=== PATIENT | male | born 1955 ===

== ENCOUNTER 2016-08-12 18:34 | Emergency (ER) | payer OTHER ==
[2016-08-12 18:47] VITALS: TEMP 97.7
--- NOTE | 2016-08-12 20:03 | EDPHY ---
HPI/HX/ROS/PE/MDM Narrative: CHIEF COMPLAINT: Left shoulder pain. HISTORY OF PRESENT ILLNESS: The patient is a 60-year-old male who presents with sharp left arm pain that began this morning upon waking. The pain has been constant and is worse with movement. It is severe in nature. He localizes it to the shoulder and it does not radiate. He has taking Advil to moderate effect. He denies numbness, weakness, or paresthesias. He drove for 8 hours yesterday. No fever, chills, chest pain, shortness of breath, palpitations, vomiting, diarrhea, urinary complaints, headache, lightheadedness. He did have a rotator cuff injury in this shoulder a few years ago. REVIEW OF SYSTEMS: Aside from elements discussed in the HPI, a comprehensive 10-point review of systems was reviewed and is negative. PAST MEDICAL HISTORY: Hypothyroidism, hypercholesterolemia. SOCIAL HISTORY: Nonsmoker, no illicit drug use. VITAL SIGNS: Reviewed by me GENERAL: Well-developed, well-nourished, resting comfortably in no respiratory distress. HEENT: Atraumatic. Eyes: No icterus, no injection. Mouth: moist mucous membranes. No erythema or lesions. Neck: supple with no adenopathy. LUNGS: Clear to auscultation bilaterally, no wheezes, rhonchi or rales. CARDIAC: Regular rate and rhythm, no rubs, murmurs or gallops. ABDOMEN: Soft, nontender, nondistended, bowel sounds normal. BACK: No CVA tenderness. EXTREMITIES: No trauma. No edema. Left shoulder: Well localized tendernss to palpation along lateral deltoid. Inability to abduct and pain with abduction. Normal internal and external rotation. Normal flextion and extenstion. Pain with ROM. NEURO: Alert and oriented, grossly nonfocal. SKIN: Warm and dry, no rash. PSYCHIATRIC: Normal mentation, no agitation. Portions of this note were transcribed by a registered medical transcriptionist. I personally performed a history, physical exam, medical decision making, and confirmed accuracy of information the transcribed note. ED Course: 60-year-old male presents with sharp left shoulder pain since he awoke this morning. The pain is severe and worse with movement. He has no numbness or weakness. He is able to move the fingers of his left hand. His shoulder is not warm to the touch and he has not been febrile. He denies fever, shortness of breath, chest pain, or other complaints. He denies other symptoms at this time. Left shoulder x-ray ordered. I independently reviewed the patient's images on the PACS system. My interpretation: calcifications seen adjacent to joint consistent with calcific tendonitis. See Imaging section for radiology reports. The differential diagnosis includes but is not limited to: shoulder sprain, shoulder strain, rotator cuff injury, arthritis, joint infection. Findings discussed with patient. Recommend nsaids, rest, follow up with ortho for possible injection. - Data Points Medications Given: Discontinued Medications Hydrocodone Bitart/Acetaminophen ([place] 5/325) 1 tab PO EDNOW ONE Stop: 08/12/16 20:20 Last Admin: 08/12/16 20:28 Dose: 1 tab Hydrocodone Bitart/Acetaminophen ([place] 5/325mg Prepack#6) 1 btl TAKEHOME EDNOW ONE Stop: 08/12/16 21:26 Last Admin: 08/12/16 21:48 Dose: 1 btl General Time Seen by Provider: 08/12/16 19:43 Initial Vital Signs: Initial Vital Signs Temperature (C) 36.5 C 08/12/16 18:44 Heart Rate 71 08/12/16 18:44 Respiratory Rate 18 08/12/16 18:44 Blood Pressure 130/78 H 08/12/16 18:44 O2 Sat (%) 95 08/12/16 18:44 O2 Delivery Mode Room Air Allergies/Adverse Reactions: No Known Allergies Allergy (Unverified 08/12/16 18:47) Home Medications: Medication Instructions Recorded Cholesterol Medication. 08/12/16 Hydrocodone/APAP 5/325 [[place] 1 tab PO Q6H PRN #10 tab 08/12/16 5/325 (RX)] Levothyroxine 08/12/16 Departure - Departure Disposition: Home, Routine, Self-Care Clinical Impression: Left shoulder tendonitis Condition: Good Instructions: Tendinitis (ED) Additional Instructions: Mainstay of therapy is rest, ice, immobilization, elevation, and nonsteroidal anti-inflammatories for pain and to decrease swelling. Apply ice for 20-30 minutes every 2-3 hours for the next 48 hours. I recommend Ibuprofen (Motrin,Advil) or Naproxen Sodium (Aleve) for pain and anti-inflammatory effects. You may take either one, but do not take both. Your dose is: Ibuprofen 600mg every 6-8 hours with food. OR Naproxen Sodium (Aleve) 220mg every [address] Smith, orthopedics, tomorrow to set up a follow up appointment. Return to the emergency department if you experience any serious worsening of condition. Referrals: Beck Howard MD [Primary Care Provider] - As per Instructions Han Smith MD [Medical Doctor] - As per Instructions Prescriptions: Hydrocodone/APAP 5/325 [[place] 5/325 (RX)] 1 tab PO Q6H PRN #10 tab PRN Reason: Pain Report Scribed for: Linda Caraballo Report Scribed by: Сергей Kim Date of Report: 08/12/16 Time of Report: 19:44
[2016-08-12] MEDS ORDERED: HYDROCODONE/APAP 5/325 TAB PO ONE (20:19)
[2016-08-12] MEDS ORDERED: HYDROCOD/APAP 5/325 PREPACK#6 BTL TAKEHOME ONE (21:25)
[2016-08-12 21:48] VITALS: BP 128/82; PULSE 70; RESP 16; O2SAT 97
== END 2016-08-12 21:45 | disposition home or self-care (01) ==
DX: M75.82 Other shoulder lesions, left shoulder (principal)

== ENCOUNTER 2017-04-16 04:03 | Observation (INO) | payer OTHER ==
--- NOTE | 2017-04-16 04:15 | EDPHY ---
H & P Stated Complaint: Near syncope, fell from standing, R arm pain Time Seen by Provider: 04/16/17 04:10 HPI/ROS: Chief Complaint: Near syncope, right arm injury HPI: 61-year-old male woke this morning with a strange sensation in his left lower abdomen in the sensation he had to urinate. He got up and went to the bathroom. He only had a few drops of urine. He was walking back to his bed when he collapsed. Patient thinks he may have had a brief several 2nd loss of consciousness. He remembers feeling a crack when he fell. He believes his arm was behind him. He does not think he hit his head. Did not have any preceding chest pain. He did feel somewhat diaphoretic right before he fell and also after he fell. No shortness of breath. No previous history of the same. ROS: 10 point Review of Systems is negative except as noted in the HPI. PMH: Hypothyroidism, hyperlipidemia Social History: No smoking, occasional alcohol, no recreational drug use Family History: non-contributory Physical Exam: Gen: Awake, Alert, No Distress HEENT: Nose: no rhinorrhea Eyes: PERRLA, EOMI Mouth: Moist mucosa Neck: Supple, no JVD Chest: nontender, lungs clear to auscultation Heart: S1, S2 normal, no murmur Abd: Soft, non-tender, no guarding Back: no CVA tenderness, no midline tenderness Ext: Right mid shaft humerus is deformed, shoulder is in normal anatomic alignment with no bony deformities, 2+ radial ulnar pulses. Sensations intact in the radial, median and ulnar nerve distribution. Capillary refills less than 3 sec. Skin: no rash Neuro: CN II-XII intact, Sensation grossly intact, Strength 5/5 in bilateral upper and lower extremities - Personal History Current Tetanus/Diphtheria Vaccine: Unsure Current Tetanus Diphtheria and Acellular Pertussis (TDAP): Unsure - Medical/Surgical History Hx Asthma: No Hx Chronic Respiratory Disease: No Hx Diabetes: No Hx Cardiac Disease: No Hx Renal Disease: No Hx Cirrhosis: No Hx Alcoholism: No Hx HIV/AIDS: No Hx Splenectomy or Spleen Trauma: No Other PMH: Hypothyroidism, high cholesterol. - Social History Smoking Status: Never smoked Constitutional: Initial Vital Signs Temperature (C) 36.4 C 04/16/17 04:05 Heart Rate 75 04/16/17 04:05 Respiratory Rate 16 04/16/17 04:05 Blood Pressure 118/78 04/16/17 04:05 O2 Sat (%) 93 04/16/17 04:05 O2 Delivery Mode Room Air Allergies/Adverse Reactions: No Known Allergies Allergy (Unverified 08/12/16 18:47) Home Medications: Medication Instructions Recorded Cholesterol Medication. 08/12/16 Hydrocodone/APAP 5/325 [[place] 1 tab PO Q6H PRN #10 tab 08/12/16 5/325 (RX)] Levothyroxine 08/12/16 Medical Decision Making - Diagnostics EKG Interpretation: ECG time 4:18 a.m., sinus rhythm with a rate of 68. There is a first-degree AV block. There is borderline left axis deviation, no acute ST or T-wave changes. Imaging Results: Right mid shaft humerus fracture. Imaging: I viewed and interpreted images myself ED Course/Re-evaluation: 61-year-old male with a mid shaft humerus fracture status post syncopal fall. ECG shows a first-degree heart block. He has as midshaft fracture on his x- ray. Laboratory evaluations are negative. I have discussed with Dr. Lucía Morrow's PA. They will plan on evaluating for possible surgical repair today. Patient is to remain NPO. I have discussed with the hospitalist, Dr. Blum. She will admit to her service for further care. - Data Points Laboratory Results: Laboratory Results 04/16/17 04:00 04/16/17 04:00 04/16/17 04/16/17 04/16/17 04:57 04:00 04:00 WBC 8.19 10^3/uL 10^3/uL (3.80-9.50) RBC 5.47 10^6/uL 10^6/uL (4.40-6.38) Hgb 16.7 g/dL g/dL (13.7-17.5) Hct 46.5 % % (40.0-51.0) MCV 85.0 fL fL (81.5-99.8) MCH 30.5 pg pg (27.9-34.1) MCHC 35.9 g/dL g/dL (32.4-36.7) RDW 14.2 % % (11.5-15.2) Plt Count 202 10^3/uL 10^3/uL (150-400) MPV 11.2 fL fL (8.7-11.7) Neut % (Auto) 42.9 % % (39.3-74.2) Lymph % (Auto) 44.0 % % (15.0-45.0) [place] % (Auto) 9.3 % % (4.5-13.0) Eos % (Auto) 2.8 % % (0.6-7.6) Baso % (Auto) 0.5 % % (0.3-1.7) Nucleat RBC Rel Count 0.0 % % (0.0-0.2) Absolute Neuts (auto) 3.52 10^3/uL 10^3/uL (1.70-6.50) Absolute Lymphs (auto) 3.60 10^3/uL H 10^3/uL (1.00-3.00) Absolute Monos (auto) 0.76 10^3/uL 10^3/uL (0.30-0.80) Absolute Eos (auto) 0.23 10^3/uL 10^3/uL (0.03-0.40) Absolute Basos (auto) 0.04 10^3/uL 10^3/uL (0.02-0.10) Absolute Nucleated RBC 0.00 10^3/uL 10^3/uL (0-0.01) Immature Gran % 0.5 % % (0.0-1.1) Immature Gran # 0.04 10^3/uL 10^3/uL (0.00-0.10) Sodium 146 mEq/L H mEq/L (134-144) Potassium 4.2 mEq/L mEq/L (3.5-5.2) Chloride 109 mEq/L mEq/L (97-110) Carbon Dioxide 22 mEq/l mEq/l (22-31) Anion Gap 15 mEq/L mEq/L (8-16) BUN 13 mg/dL mg/dL (7-23) Creatinine 0.9 mg/dL mg/dL (0.7-1.3) Estimated GFR > 60 Glucose 115 mg/dL H mg/dL (70-100) Calcium 9.7 mg/dL mg/dL (8.5-10.4) Troponin I < 0.012 ng/mL ng/mL (0.000-0.034) Urine Color Pending Urine Appearance Pending Urine pH Pending Ur Specific [place] Pending Urine Protein Pending Urine Ketones Pending Urine Blood Pending Urine Nitrate Pending Urine Bilirubin Pending Urine Urobilinogen Pending Ur Leukocyte Esterase Pending Urine Glucose Pending Medications Given: Discontinued Medications Sodium Chloride (Ns) 1,000 mls @ 0 mls/hr IV ONCE ONE PRN Reason: Wide [place] Stop: 04/16/17 04:42 Last Admin: 04/16/17 04:44 Dose: 1,000 mls Departure - Departure Disposition: [facility] Inpatient Acute Clinical Impression: Humerus fracture, Syncope Condition: Fair Referrals: Patient,NotPresent [Unknown] - As per Instructions
[2017-04-16 04:18] LABS: % IMMATURE GRANULYOCYTES 0.5 % (0.0-1.1); ABSOLUTE IMMATURE GRANULOCYTES 0.04 10^3/uL (0.00-0.10); ADD DIFF? NO; ADD MORPH? NO; ADD SCAN? NO; ATYPICAL LYMPHOCYTE FLAG 20 (0-99); FRAGMENT RBC FLAG 0 (0-99); HEMATOCRIT 46.5 % (40.0-51.0); HEMOGLOBIN 16.7 g/dL (13.7-17.5); LEFT SHIFT FLG 0 (0-99); LIPEMIA HEMOLYSIS FLAG 90 (0-99); MEAN CELL HEMOGLOBIN 30.5 pg (27.9-34.1); MEAN CELL HEMOGLOBIN CONCENTR. 35.9 g/dL (32.4-36.7); MEAN PLATELET VOLUME 11.2 fL (8.7-11.7); PLATELET CLUMPS FLAG 0 (0-99); PLATELET COUNT 202 10^3/uL (150-400); RED BLOOD CELL COUNT 5.47 10^6/uL (4.40-6.38); RED CELL DISTRIBUTION WIDTH 14.2 % (11.5-15.2)
[2017-04-16 04:37] LABS: ANION GAP 15 mEq/L (8-16); CALCIUM 9.7 mg/dL (8.5-10.4); CARBON DIOXIDE 22 mEq/l (22-31); CHLORIDE 109 mEq/L (97-110); CREATININE 0.9 mg/dL (0.7-1.3); GLOMERULAR FILTRATION RATE > 60; GLUCOSE 115 mg/dL (70-100); POTASSIUM 4.2 mEq/L (3.5-5.2); SODIUM 146 mEq/L (134-144)
[2017-04-16] MEDS ORDERED: NS 1,000 ML IV ONE (04:41)
[2017-04-16 04:49] LABS: TROPONIN I < 0.012 ng/mL (0.000-0.034)
--- NOTE | 2017-04-16 05:05 | CPEKG ---
Heart Rate: 68 RR Interval: 882 P-R Interval: 228 QRSD Interval: 96 QT Interval: 420 QTC Interval: 447 P [place]: 32 QRS [place]: -18 T Wave [place]: 22 EKG Severity - ABNORMAL ECG - EKG Impression: SINUS RHYTHM EKG Impression: FIRST DEGREE AV BLOCK EKG Impression: BORDERLINE LEFT AXIS DEVIATION Electronically Signed By: Andrae Harvey 16-Apr-2017 23:35:30
[2017-04-16 05:08] LABS: COLOR YELLOW; LEUKOCYTE ESTERASE,URINE NEGATIVE (NEGATIVE); NITRITE,URINE NEGATIVE (NEGATIVE)
[2017-04-16] MEDS ORDERED: LIDOCAINE 2% JELLY 20 ML (UROJECT) UR ONE (05:10)
[2017-04-16 05:13] LABS: MUCUS TRACE /lpf (NONE-1+); RBC,URINE 50-182 /hpf (0-3)
[2017-04-16] MEDS ORDERED: ONDANSETRON 4 MG/2 ML VIAL IVP ONE ×2 (05:15→06:36)
[2017-04-16] MEDS ORDERED: ONDANSETRON 4 MG/2 ML VIAL ONE (05:19)
[2017-04-16] MEDS ORDERED: ONDANSETRON DISINTEGRATING 4 MG TAB PO PRN (05:49)
[2017-04-16] MEDS ORDERED: ONDANSETRON 4 MG/2 ML VIAL IVP PRN (05:49)
[2017-04-16] MEDS ORDERED: LR 1,000 ML IV SCH (06:00)
[2017-04-16] MEDS ORDERED: PROMETHAZINE HCL 25 MG/ML INJ IVP ONE (08:13)
[2017-04-16] MEDS ORDERED: PROMETHAZINE HCL 25 MG/ML INJ IVP PRN (08:14)
--- NOTE | 2017-04-16 08:30 | PDGENHP ---
History and Physical - Chief Complaint syncope, right arm pain - History of Present Illness Source - patient provides history and appears reliable. at bedside. HPI - Pleasant 61 yo M with pmhx significant for hypothyroidism and HLD who presents to ED today following a syncopal episode at home. Patient awoke early this AM to void. He was able to ambulate to the bathroom without difficulty or symptoms. He notes he had some hesitancy with stream and was unable to void except for a few drops. He began to feel LLQ abdominal pain and was concerned he may have developed a kidney stone. Patient denies any hematuria or dysuria. no previous history of nephrolithiasis previously. patient without any nausea/ vomiting until he received pain medications in ED. After patient was only able to void a little amount he was walking back to the bed when he blacked out. He recalls falling and hearing a pop. reports patient may have been out for 1 -2 minutes. When he awoke patient noted pain in his right arm and some mild shortness of breath that quickly resolved. he denies any chest pain/palpitations /lightheadedness. Currently pain is well controlled in both arm and abdomen. History Information - Allergies/Home Medication List Allergies/Adverse Reactions: No Known Allergies Allergy (Unverified 08/12/16 18:47) Home Medications: Atorvastatin Calcium [Lipitor 10 mg (*)] 10 mg PO HS 08/12/16 [Last Taken ] Levothyroxine [Synthroid 112 mcg (*)] 112 mcg PO DAILY06 08/12/16 [Last Taken ] Fluticasone Nasal [Flonase Nasal [place] (RX)] 1 sprays NASAL DAILY PRN 04/16/17 [ Last Taken Unknown] Ibuprofen [Motrin (*)] 200 mg PO DAILY PRN 04/16/17 [Last Taken Unknown] I have personally reviewed and updated: family history, medical history, social history, surgical history - Past Medical History Additional medical history: hypothyroidism. HLD - Surgical History Reports: no pertinent surgical hx Additional surgical history: denies - Family History Additional family history: mother - HTN. no fhx kidney stones or renal disease - Social History Smoking Status: Never smoked Alcohol Use: None Drug Use: None Additional social history: patient and lives with . 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 COR - FULL. MDPOA. living will in place. Review of Systems Review of Systems: ROS: 10pt was reviewed & negative except for what was stated in HPI & below Constitutional: Denies: chills, fever, weakness EENMT: Reports: no symptoms Cardiac: Reports: syncope. Denies: chest pain, edema, lightheadedness, palpitations Respiratory: Reports: shortness of breath (dyspnea upon wakening from syncopal episode), other (rare episodes of apnea) Gastrointestinal: Reports: nausea (s/p pain medication). Denies: vomitting, diarrhea Genitourinary: Reports: other (see HPI. retention today.). Denies: burning, dysuria, hematuria Muscolosketal: Reports: no symptoms Skin: Reports: no symptoms Neurological: Reports: no symptoms. Denies: headache, tingling Physical Exam Physical Exam: Selected Entries 04/16/17 04:05 Blood Pressure Automatic Method Heart Rate 75 Respiratory 16 Rate O2 Sat (%) 93 Temperature (C) 36.4 C Blood Pressure 118/78 Mean Arterial 91 Pressure (MAP) O2 Delivery Room Air Mode Temperature Oral Source Temp Pulse Resp BP Pulse Ox 36.6 C 84 18 133/82 H 95 04/16/17 07:52 04/16/17 07:52 04/16/17 07:52 04/16/17 07:52 04/16/17 07:52 O2 (L/minute) 2 Constitutional: no apparent distress, not in pain Eyes: PERRL, anicteric sclera, EOMI Ears, Nose, Mouth, Throat: moist mucous membranes, other (no nasal discharge), No poor dentition Cardiovascular: no murmur, rub, or gallop, pulses symmetric bilaterally, bradycardia, No systolic murmur, No irregularly irregular, No edema Peripheral Pulses: 1+: dorsalis-pedis (R), dorsalis-pedis (L) Respiratory: no respiratory distress, no rales or rhonchi, clear to auscultation , No reduced air movement Gastrointestinal: soft, non-tender abdomen, other (obese abdomen. hypoactive BS. soft. NTTP.), No ascites, No guarding, No rebound Genitourinary: no bladder tenderness, No amos in urethra Skin: warm, normal color, No rash Musculoskeletal: pain with ROM (right arm in sling. pain with movement.), No generalized weakness Neurologic: AAOx3, sensation intact bilaterally, other (grossly nonfocal. sensation intact to bilateral hands.), No weakness, No facial droop Psychiatric: interacting appropriately, not anxious, not encephalopathic, thought process linear, No poor insight, No poor judgement, No poor memory Lab Data & Imaging Review 04/16/17 04:00 04/16/17 04:00 WBC 8.19 10^3/uL (3.80-9.50) 04/16/17 04:00 RBC 5.47 10^6/uL (4.40-6.38) 04/16/17 04:00 Hgb 16.7 g/dL (13.7-17.5) 04/16/17 04:00 Hct 46.5 % (40.0-51.0) 04/16/17 04:00 MCV 85.0 fL (81.5-99.8) 04/16/17 04:00 MCH 30.5 pg (27.9-34.1) 04/16/17 04:00 MCHC 35.9 g/dL (32.4-36.7) 04/16/17 04:00 RDW 14.2 % (11.5-15.2) 04/16/17 04:00 Plt Count 202 10^3/uL (150-400) 04/16/17 04:00 MPV 11.2 fL (8.7-11.7) 04/16/17 04:00 Neut % (Auto) 42.9 % (39.3-74.2) 04/16/17 04:00 Lymph % (Auto) 44.0 % (15.0-45.0) 04/16/17 04:00 [place] % (Auto) 9.3 % (4.5-13.0) 04/16/17 04:00 Eos % (Auto) 2.8 % (0.6-7.6) 04/16/17 04:00 Baso % (Auto) 0.5 % (0.3-1.7) 04/16/17 04:00 Nucleat RBC Rel Count 0.0 % (0.0-0.2) 04/16/17 04:00 Absolute Neuts (auto) 3.52 10^3/uL (1.70-6.50) 04/16/17 04:00 Absolute Lymphs (auto) 3.60 10^3/uL (1.00-3.00) H 04/16/17 04:00 Absolute Monos (auto) 0.76 10^3/uL (0.30-0.80) 04/16/17 04:00 Absolute Eos (auto) 0.23 10^3/uL (0.03-0.40) 04/16/17 04:00 Absolute Basos (auto) 0.04 10^3/uL (0.02-0.10) 04/16/17 04:00 Absolute Nucleated RBC 0.00 10^3/uL (0-0.01) 04/16/17 04:00 Immature Gran % 0.5 % (0.0-1.1) 04/16/17 04:00 Immature Gran # 0.04 10^3/uL (0.00-0.10) 04/16/17 04:00 Sodium 146 mEq/L (134-144) H 04/16/17 04:00 Potassium 4.2 mEq/L (3.5-5.2) 04/16/17 04:00 Chloride 109 mEq/L (97-110) 04/16/17 04:00 Carbon Dioxide 22 mEq/l (22-31) 04/16/17 04:00 Anion Gap 15 mEq/L (8-16) 04/16/17 04:00 BUN 13 mg/dL (7-23) 04/16/17 04:00 Creatinine 0.9 mg/dL (0.7-1.3) 04/16/17 04:00 Estimated GFR > 60 04/16/17 04:00 Glucose 115 mg/dL (70-100) H 04/16/17 04:00 Calcium 9.7 mg/dL (8.5-10.4) 04/16/17 04:00 Troponin I < 0.012 ng/mL (0.000-0.034) 04/16/17 04:00 TSH 1.320 uIU/mL (0.465-4.680) 04/16/17 04:00 Urine Color YELLOW 04/16/17 04:57 Urine Appearance CLEAR 04/16/17 04:57 Urine pH 6.0 (5.0-7.5) 04/16/17 04:57 Ur Specific [place] 1.019 (1.002-1.030) 04/16/17 04:57 Urine Protein NEGATIVE (NEGATIVE) 04/16/17 04:57 Urine Ketones NEGATIVE (NEGATIVE) 04/16/17 04:57 Urine Blood 3+ (NEGATIVE) H 04/16/17 04:57 Urine Nitrate NEGATIVE (NEGATIVE) 04/16/17 04:57 Urine Bilirubin NEGATIVE (NEGATIVE) 04/16/17 04:57 Urine Urobilinogen NEGATIVE EU (0.2-1.0) 04/16/17 04:57 Ur Leukocyte Esterase NEGATIVE (NEGATIVE) 04/16/17 04:57 Urine RBC 50-182 /hpf (0-3) H 04/16/17 04:57 Urine WBC Not Reported 04/16/17 04:57 Ur Epithelial Cells TRACE /lpf (NONE-1+) 04/16/17 04:57 Urine Mucus TRACE /lpf (NONE-1+) 04/16/17 04:57 Urine Glucose NEGATIVE (NEGATIVE) 04/16/17 04:57 Imaging Review: CT abdomen/pelvis wo 2mm stone L UVJ bulging into bladder. mild left hydro. gallstones. EKG additional interpertation: NSR 60s. LAD. 1st degree AV block. QTc 447. Assessment & Plan Assessment: 1. Humerus fracture (Acute) - right arm. ortho consulted from the ED and plan for possible repair today or thereafter. 2. Syncope (Acute) - suspect vasovagal response after patient was unable to void vs orthostasis vs less likely cardiac or neurologic event. Patient EKG with 1st degree AV block. will plan to monitor on telemetry. orthostatic BPs. s/ p 1 L NS in ED. Patient reports active lifestyle swimming at least 7 or more miles weekly and no previous history of chest pain or typical symptoms of angina. 3. nephrolithiasis with obstruction/hydronephrosis at L UVJ - anticipate stone should mobilize to bladder completely. IVF. supportive care. 4. urinary retention - no previous history of BPH. patient with kidney stone as noted above. patient required straight cath in ED and now s/p narcotics. will continue to monitor bladder scan/PVR. Patient may require amos if continues to have large volume retention. 5. hypothyroidism - resume l-thyroxine when diet advanced. 6. HLD - resume statin when diet advanced. FEN - IVF. electrolyte replacement prn. NPO. PPX - SCDs. holding anticoagulation pending ortho recs. COR - FULL MDPOA. Dispo - Admit to observation on medical floor pending orthopedic recs.
[2017-04-16] MEDS ORDERED: IBUPROFEN 200 MG TAB PO PRN (09:14)
[2017-04-16] MEDS ORDERED: FLUTICASONE NASAL 120 SPRAYS/16 GM MDI EACHNARE PRN (09:14)
[2017-04-16] MEDS ORDERED: LORazepam 2 MG/ML INJ IVP PRN (10:24)
--- NOTE | 2017-04-16 12:36 | GCON ---
[f rep st] CONSULTATION CHIEF COMPLAINT: Right arm pain. HISTORY OF PRESENT ILLNESS: Patient is a 61-year-old male who woke up in the middle of the night and went to the bathroom, became dizzy and fell landing on his right arm. Patient does state that he did feel and hear a crack in his right upper extremity. He also notes that there was a brief loss of consciousness. He was brought to the ER, where x-rays were taken and show a right midshaft humerus fracture. The patient was placed in a coaptation splint and a sling and made nonweightbearing on the right upper extremity. He denies any other orthopedic complaints. PAST MEDICAL HISTORY: Hypothyroidism and hyperlipidemia. MEDICATIONS: Atorvastatin, calcium, levothyroxine, fluticasone, and ibuprofen as needed. ALLERGIES: No known drug allergies. PAST SURGICAL HISTORY: No surgical history noted. FAMILY HISTORY: Mother has hypertension. Otherwise unremarkable. REVIEW OF SYSTEMS: A 10-point review of systems was reviewed and negative for any other complaints, concerns or history, except what was noted in the HPI. PHYSICAL EXAM: GENERAL: Ple[place], NAD. HEENT: NC/AT, EOMI, PERRLA. Ears and nares patent without discharge. Oropharynx is clear. Neck is nontender to palpation, full range of motion. MUSCULOSKELETAL: The right upper extremity: The coaptation splint is in place and stabilizing a midshaft humerus fracture. It is well fitted and comfortable. The patient's arm is in a sling. The skin is without erythema. Normal sensation to light touch in the right upper extremity. Distal pulse present in the right upper extremity. FROM of hand/ wrist. No pain with passive stretch. DNVI BUEs. SKIN: Warm, dry, and intact. NEUROLOGIC: Nonfocal. No deficits noted. C5-T1 and L2-S1. PSYCHIATRIC: Alert and orient x3. Appropriate mood and affect. Secondary survey negative. RADIOGRAPH: X-rays were reviewed of the right humerus and show a non-displaced and well-aligned, relatively transverse mid shaft humerus fracture. IMPRESSION: Closed, right midshaft humerus fracture. PLAN: The patient was seen and examined by both myself and Dr Castrejon independently, and it was discussed and reviewed with Dr. Castrejon and the plan is for the patient to remain in the coaptation splint and sling. He should be nonweightbearing on the right upper extremity. He needs to avoid any anti- inflammatories. He can use pain medicine as needed. At this time, the patient will not need surgery and we will continue with conservative treatment. All questions were answered to the patient's satisfaction. We will have him follow up with Dr. Castrejon next Friday or Friday, April 21 or , in the office for repeat x-rays and to assess fracture stability/treatment. As long as the fracture remains stable, we will continue with non-op treatment and transition to a fracture brace. Otherwise, it was discussed with the patient that if his fracture displaces, we would need to bring him to the OR at that point for ORIF. All questions answered, he illustrates understanding of the plan and he is happy with the care received. Please call with any questions. /[id number] [id number]
[2017-04-16] MEDS ORDERED: HYDROmorphONE/DILAUDID 2 MG TAB PO PRN (14:11)
[2017-04-16] MEDS ORDERED: BISACODYL 10 MG SUPP PR PRN (14:13)
[2017-04-16] MEDS ORDERED: POLYETHYLENE GLYCOL 3350 17 GM PKT PO PRN (14:13)
[2017-04-16] MEDS ORDERED: LACTULOSE 20 GM/30 ML UDCUP PO PRN (14:13)
[2017-04-16] MEDS ORDERED: MAGNESIUM HYDROXIDE 30 ML UDCUP PO PRN (14:13)
[2017-04-16] MEDS: ACETAMINOPHEN 325 MG TAB PO PRN ×2 (14:31→22:20)
--- NOTE | 2017-04-16 15:52 | ECHO ---
[email or web address] [address] [address] Main: [phone] Fax: Transthoracic Echocardiogram Name: VALENTINO LOZADA MR#: [id number] Study Date: 04/16/2017 Study Time: 02:23 PM Date of : 1955 Age: 61 year(s) Height: 175.3 cm (69 in.) Weight: 81.65 kg (180 lb.) BSA: 1.98 m2 Gender: Male Examination: Echo Indication: Syncope with Left Humerus fracture Image Quality: Contrast: Requested by: Lance Solares BP: 118 mmHg/73 mmHg Heart Rate: Rhythm: Tachycardia Indication: Syncope with Left Humerus fracture Procedure Staff Operator Assistant I Cementing: Jeffery Nielsen Reading Physician: Lance Crockett Requesting Provider: Conclusions: Normal size left ventricle. No LV hypertrophy. Global hypercontractility of the left ventricle. EF is 74 %. The mitral valve is normal in appearance and function. Mild aortic valve regurgitation is present. Measurements: Chambers Valvular Assessment AV/MV Valvular Assessment TV/PV Normal Normal Normal Name Value Range Name Value Range Name Value Range Ao Tasia (MM): 4.1 cm (2.2 cm-3.7 AV Vmax: 1.59 m/s (1 m/s-1.7 PV Vmax: 1.28 m/s (0.6 m/s-0.9 cm) m/s) m/s) IVSd (2D): 1.0 cm (0.6 cm-1.1 AV maxP mmHg ( - ) PV PGmax: 7 mmHg ( - ) cm) LVOT Vmax: 1.25 m/s (0.7 m/s-1.1 LVDd (2D): 4.7 cm (4.2 cm-5.9 m/s) cm) MV E Vmax: 0.84 m/s ( - ) LVDs (2D): 2.7 cm (2.1 cm-4 MV A Vmax: 0.69 m/s ( - ) cm) MV E/A: 1.22 ( - ) LVPWd (2D): 1.1 cm (0.6 cm-1 cm) LVEF (2D): 74 (>=54 %) Continued Measurements: Chambers Valvular Assessment AV/MV Name Value Name Value LADs Lon.0 cm MV E' Septal: 0.07 m/s LA Area: 17.0 cm2 MV E/E' Septal: 12.20 LA Volume: 50 ml MV E/E' Lateral: 9.60 Patient: VALENTINO LOZADA Study Date: 04/16/2017 Page 1 of 2 02:23 PM LA Volume Index: 25.3 ml/m2 Findings: Left Ventricle: Normal size left ventricle. No LV hypertrophy. Global hypercontractility of the left ventricle. EF is 74 %. No regional wall motion abnormality. Diastolic dysfunction is present. . Right Ventricle: Normal size right ventricle. Left Atrium: The left atrium is normal in size. Right Atrium: The right atrium is normal in size. Mitral Valve: The mitral valve is normal in appearance and function. There is no mitral valve regurgitation. Aortic Valve: The aortic valve is tri-leaflet. The aortic valve is normal in appearance and function. Mild aortic valve regurgitation is present. Tricuspid Valve: The tricuspid valve is normal in appearance and function. Pulmonic Valve: The pulmonic valve is normal in appearance and function. Aorta: The aorta is normal. Pericardium: Trivial pericardial effusion. No echocardiographic evidence of hemodynamic compromise. There is pericardial fat. (No Signature Object) Patient: VALENTINO LOZADA Study Date: 04/16/2017 Page 2 of 2 02:23 PM [id number]
[2017-04-16] MEDS: TAMSULOSIN HCL 0.4 MG CAP PO SCH (16:11)
[2017-04-16] MEDS: LEVOTHYROXINE 112 MCG TAB PO SCH (17:48)
--- NOTE | 2017-04-16 17:58 | HOSPPROG ---
Hospitalist Progress Note Assessment/Plan: Prolonged service in addition to the time originally spent by Dr. Anamika Blum for history and physical, direct patient care, at bedside with patient and from 11:40 a.m. until 12:15 p.m., 35 min, addressing the following: -the patient presented with acute right humerus fracture in the setting of syncopal event, most likely vasovagal in the setting of pain as well as urinary outflow obstruction -physical exam reveals regular heart rhythm with no murmurs rubs or gallops, no lower extremity edema, pain level 0/10 -patient has been seen in consultation by Orthopedics, they recommended a coaptation splint with sling, nonweightbearing right upper extremity, no NSAIDs , follow-up next Friday, Dr. Samuel Castrejon to follow up with patient his today -patient has yet to urinate, increase IV fluid rate, bladder scan if no urine output -underlying cause of pain was nephrolithiasis, recommend urine straining, increased IV fluids, Flomax, abdominal CT demonstrating left-sided hydronephrosis with 2 mm calcified stone in the distal left UVJ, will most likely pass without intervention -placed on bowel regimen, incentive spirometer -to rule out cardiac issue, get echocardiogram, monitor on telemetry given his new right bundle branch block on EKG -adjust pain medication for pain control, adjust antiemetics -get occupational therapy evaluation given the patient broke his dominant arm Objective: Vital Signs Temp Pulse Resp BP Pulse Ox 36.9 C 75 21 H 94/51 L 93 04/16/17 16:00 04/16/17 16:00 04/16/17 16:00 04/16/17 16:00 04/16/17 16:00 ICD10 Worksheet Patient Problems: Problems Problem Status Onset Humerus fracture Acute Syncope Acute
[2017-04-16] MEDS ORDERED: ATORVASTATIN CALCIUM 10 MG TAB PO SCH (21:00)
[2017-04-17] MEDS: SENNOSIDES/DOCUSATE SODIUM TAB PO SCH ×2 (00:28→08:32)
[2017-04-17] MEDS: LEVOTHYROXINE 112 MCG TAB PO SCH (05:30)
[2017-04-17 07:39] VITALS: BP 100/66; PULSE 75; RESP 15; TEMP 97.8; O2SAT 92
--- NOTE | 2017-04-17 08:12 | SOAPPROG ---
[facility] Progress Note Assessment/Plan: Assessment/plan: R midshaft humerus fracture HOD#1 - Continue pain management - Continue PT/OT - Splint to remain in place at all times with sling RUE - NWB RUE - Okay for discharge from an orthopedic standpoint - Follow-up with Dr. Castrejon in 1 week for repeat x-ray and evaluation 04/17/17 08:10 Subjective: Pt states he is doing well and pain is well managed. Pt denies fever, chills, chest pain, SOB, abdominal pain, N/V/D, numbness, tingling and calf pain. Objective: Vital Signs Temp Pulse Resp BP Pulse Ox 36.6 C 75 15 100/66 92 04/17/17 07:39 04/17/17 07:39 04/17/17 07:39 04/17/17 07:39 04/17/17 07:39 04/16/17 04/17/17 04/18/17 05:59 05:59 05:59 Intake Total 1100 Output Total 300 Balance 800 Physical Exam - Physical Exam General Appearance: alert, no apparent distress Cardiac/Chest: normal peripheral pulses Skin: normal color, warm/dry Extremities: normal inspection, normal capillary refill, other (Splint and sling intact RUE), No pedal edema, No calf tenderness, No swelling, No Robel's sign Neuro/Psych: no motor/sensory deficits, alert, normal mood/affect, oriented x 3 ICD10 Worksheet Patient Problems: Problems Problem Status Onset Humerus fracture Acute Syncope Acute
[2017-04-17] MEDS: TAMSULOSIN HCL 0.4 MG CAP PO SCH (08:23)
--- NOTE | 2017-04-17 11:04 | PDDCSUM ---
Discharge Summary Discharge Summary: DISCHARGE SUMMARY FOLLOW-UP ITEMS: Repeat x-rays of right upper extremity next week DATE OF ADMISSION: 04/16/2017 DATE OF DISCHARGE: 04/17/2017 DISCHARGE DIAGNOSES: 1. Acute traumatic right humerus fracture 2. Suspected vasovagal syncope 3. Acute hydronephrosis 4. Nephrolithiasis CONSULTATIONS: Orthopedics by Dr. Samuel Castrejon PROCEDURES / IMAGING: X-ray right upper extremity demonstrating humerus shaft fracture, echocardiogram demonstrating hyperdynamic left ventricle, mild aortic insufficiency, no focal wall motion abnormalities CHIEF COMPLAINT: Acute syncope and traumatic fall SUBJECTIVE: Patient is feeling well at time discharge, the pain in his right upper extremities well managed PHYSICAL EXAM ON DISCHARGE: Systolic blood pressure is 90-100, heart rate 70, afebrile overnight, satting well on room air, alert awake oriented x3, no apparent distress, sensation intact in the fingers the right upper extremity, gait steady LABS ON DISCHARGE: None HOSPITAL COURSE BY PROBLEM: The patient presented with acute syncope resulting in a mechanical fall and trauma to his right upper extremity, resulting in acute humerus fracture. The fracture was stabilized with coaptation splint with sling, non-weightbearing recommendations, and pain management. The patient was evaluated by occupational therapy as deemed safe for discharge home. His pain was stabilized on oral Dilaudid and Tylenol, and he will be continued on a bowel regimen. He will follow up with Dr. Samuel Castrejon next week for repeat x- rays to determine whether ongoing conservative management is appropriate. The patient's syncope was evaluated by 24 hr of telemetry, which demonstrated no arrhythmias. He also had an echocardiogram which demonstrated no significant valvular abnormalities. I suspect the most likely cause of his syncope is vasovagal episode secondary to pain and urinary outflow obstruction, secondary to an acute obstructing stone on the left side, initially resulting in hydronephrosis, and then most likely passed without further incident. This is the patient's 1st kidney stone, and we are unable to obtain a sample for specimen analysis. The patient follow up with his primary care provider and consider whether urologic evaluation is indicated. He also has a prescription for as needed Flomax, if he experiences any further urinary symptoms. DISCHARGE MEDICATIONS: Please see official discharge medication reconciliation sheet in chart , Flomax if needed, bowel regimen while on opiates, Dilaudid 1-4 mg as needed, Tylenol as needed. DISCHARGE INSTRUCTIONS: Please follow up with Dr. Samuel Castrejon next week as scheduled, Rg Michaels thereafter.
--- NOTE | 2017-04-18 15:37 | ASDISCHSUM ---
Discharge Information Plan Status:Home with No Needs Medically Cleared to Leave: Discharge Date:04/17/2017 11:55 AM CM D/C Disposition:Home, Routine, Self-Care ADT D/C Disposition:Home, Routine, Self-Care Projected Discharge Date:04/17/2017 11:55 AM Transportation at D/C:Family Discharge Delay Reason: Follow-Up Date:04/17/2017 11:55 AM Discharge Slot: Final Diagnosis: Placement Information Patient Contact Information Contact Name:KEYA Relationship: Address:[address] [place] [address] City:[place] Alternate Phone: [facility]/Zip Code:[place] [address] Email: Financial Information Financial Class:HMO and PPO Plans Primary Plan Desc:[employer] Primary Plan Number:[id number] Secondary Plan Desc: Secondary Plan Number: Assessment Information Intervention Information Intervention Type:*Incorrect Registration Date of Service:04/16/2017 11:18 AM Patient Type:Inpatient Staff Member:TRISTON Herman Kerry Hours: Discipline: Severity: Comment:
== END 2017-04-17 11:55 | disposition home or self-care (01) ==
LOC: EDUNIT# → INTOOBSV 05:08 → F2W 08:34
PROVIDERS: ADMIT Family Medicine; ATTEND Internal Medicine
DX: S42.321A Displaced transverse fracture of shaft of humerus, right arm, initial encounter for closed fracture (principal); R55 Syncope and collapse; N13.0 Hydronephrosis with ureteropelvic junction obstruction; I44.0 Atrioventricular block, first degree; R33.9 Retention of urine, unspecified; W19.XXXA Unspecified fall, initial encounter; E03.9 Hypothyroidism, unspecified; E78.5 Hyperlipidemia, unspecified; Y92.013 Bedroom of single-family (private) house as the place of occurrence of the external cause; Y99.8 Other external cause status; Y93.E8 Activity, other personal hygiene
CPT/HCPCS: 29125; 73060; 74176; 93005; 93306; 96361; 96374; 96375; 97165; 97535; 99285; G0378; J2060; J2405; J2550

== ENCOUNTER → 2017-04-30 | Outpatient (CLI) | payer OTHER | LOC: BMCIMAGING 10:26 | PROVIDERS: ATTEND Internal Medicine | DX: M79.641 Pain in right hand (principal); Z87.442 Personal history of urinary calculi; I82.621 Acute embolism and thrombosis of deep veins of right upper extremity; W19.XXXA Unspecified fall, initial encounter ==